=== PATIENT | male | born 1950 | race Caucasian/White ===

== ENCOUNTER 2018-09-28 05:45 | Day surgery (SDC) | payer MEDICARE ==
[~2018-09-28] VITALS: Ht 177.8 cm; Wt 93.7 kg
[~2018-09-28 05:45] MED LIST: ASPI-1264 PO
[2018-09-28] MEDS ORDERED: ringers solution, lacted 1,000 ML IV SCH (06:00)
[2018-09-28] MEDS ORDERED: cefazolin/dext.iso 2gm/100 ML IV ONE (06:00)
[2018-09-28] MEDS ORDERED: famotidine 20mg tablet PO ONE (06:00)
[2018-09-28 07:04] LABS: BASOPHILS # (AUTO) 0.1 X10'3 (0-0.2); BASOPHILS % (AUTO) 1.2 % (0-1); EOSINOPHILS # (AUTO) 0.2 X10'3 (0-0.9); EOSINOPHILS % (AUTO) 2.1 % (0-6); LYMPHOCYTES # (AUTO) 1.9 X10'3 (1.1-4.8); LYMPHOCYTES % (AUTO) 25.7 % (21-51); MEAN CORPUSCULAR HEMOGLOBIN 31.2 PG (27.0-31.0); MEAN CORPUSCULAR HGB CONC 34.4 g/dL (33.0-36.5); MEAN CORPUSCULAR VOLUME 90.7 FL (78-98); MEAN PLATELET VOLUME 8.8 FL (7.4-10.4); MONOCYTES # (AUTO) 0.8 X10'3 (0-0.9); MONOCYTES % (AUTO) 10.1 % (2-12); NEUTROPHILS # (AUTO) 4.6 X10'3 (1.8-7.7); NEUTROPHILS % (AUTO) 60.9 % (42-75); PRE OP HEMATOCRIT 48.9 % (42.0-52.0); PRE OP HEMOGLOBIN 16.8 g/dL (14.0-17.9); PRE OP PLATELET COUNT 222 X10'3 (140-440); RED BLOOD COUNT 5.39 X10'6 (4.70-6.10); RED CELL DISTRIBUTION WIDTH 14.1 % (11.5-14.5)
[2018-09-28 07:06] VITALS: BP 166/105
[2018-09-28] MEDS ORDERED: BUPIVAcaine/PF 2.5 mg/ml (0.25%) 30ml vial ONE ×2 (07:09→07:10)
[2018-09-28] MEDS ORDERED: LIDOcaine 1% 30ml preserv. free vial ONE (07:09)
[2018-09-28 07:10] VITALS: BP 166/105
[2018-09-28 07:18] LABS: ALBUMIN 3.8 G/DL (3.4-5.0); ALKALINE PHOSPHATASE 82 IU/L (46-116); BLOOD UREA NITROGEN 14 MG/DL (7-18); CALCIUM 9.2 MG/DL (8.5-10.1); CHLORIDE 106 MMOL/L (99-107); CREATININE 1.17 MG/DL (0.60-1.10); PRE OP ALT 32 U/L (30-65); PRE OP ANION GAP 8 (8-16); PRE OP AST 22 U/L (10-37); PRE OP BILIRUB, TOTAL 0.6 MG/DL (0.0-1.0); PRE OP GLUCOSE 109 MG/DL (70-104); PRE OP POTASSIUM 4.2 MMOL/L (3.4-5.1); PRE OP SODIUM 140 MMOL/L (135-145); TOTAL CARBON DIOXIDE 26.5 MMOL/L (24-32); TOTAL PROTEIN 7.7 G/DL (6.4-8.2); eGFR 62 ML/MIN
[2018-09-28] MEDS ORDERED: fentaNYL/PF 50MCG/1 ML 2ML syringe ONE (08:31)
[2018-09-28] MEDS ORDERED: midazolam 2 mg/2 ml injection ONE (08:33)
[2018-09-28] MEDS ORDERED: hydrALAZINE 20mg/ml inj. IV ONE (08:37)
[2018-09-28] MEDS ORDERED: povidone-iodine 10% topical ointment 28.4gm TP ONE (08:53)
[2018-09-28 09:22] VITALS: BP 164/108
--- NOTE | 2018-09-28 09:22 | NUR ---
Received from OR via [facility], accompanied by Anesthesiologist DR ZUÑIGA and report given by Anesthesiologist. PT AWAKE, DENIES PAIN, ISLAND DRSG COVERING RIGHT UPPER CHEST, LEFT POSTERIOR SHOULDER AND FOAM DRSG COVERING DRSG TO LEFT FOREARM, CDI. Addendum: 09/28/18 at 1006 by Anna Sanchez RN Amended: Links added.
[2018-09-28 09:32] VITALS: BP 157/99
[2018-09-28 09:42] VITALS: BP 156/63
== END 2018-09-28 09:52 | disposition home or self-care (01) ==
LOC: PAS 05:45
PROVIDERS: ATTEND Surgery
DX: C44.619 Basal cell carcinoma of skin of left upper limb, including shoulder (principal); C44.519 Basal cell carcinoma of skin of other part of trunk; Z98.890 Other specified postprocedural states
CPT/HCPCS: 11603; 36415; 80053; 82948; 85025; 93005; J0360; J0690; J2250; J3010; J3490; A6250; A6449; A7000; J7120